=== PATIENT | female | born 1970 | race Caucasian/White ===

== ENCOUNTER 2025-01-20 18:27 | Inpatient (IN) | payer OTHER ==
[~2025-01-20] VITALS: Ht 160 cm; Wt 88.2 kg
[2025-01-20] MEDS ORDERED: METF-1211 PO (18:39)
[2025-01-20] MEDS ORDERED: LOSA-381 PO (18:39)
[2025-01-20] MEDS ORDERED: LOVA20TA73 PO (18:39)
[2025-01-20 18:53] LABS: APPEARANCE,URINE HAZY (CLEAR); GLUCOSE, URINE (UA) NEGATIVE (NEGATIVE); LEUKOCYTE ESTERASE ,URINE NEGATIVE (NEGATIVE); NITRATE,URINE NEGATIVE (NEGATIVE); OCCULT BLOOD,URINE NEGATIVE (NEGATIVE); SPECIFIC GRAVITIY, URINE 1.018 (1.003-1.030)
[2025-01-20 19:04] LABS: PLATELET COUNT (AUTO) 233 K/uL (150-450); RED BLOOD CELL COUNT(AUTO) 4.67 MIL/uL (4.00-5.20); RED CELL DISTRIBUTION WIDTH 13.6 % (11.5-14.5); WHITE BLOOD COUNT (AUTO) 7.3 K/uL (4.5-11.0)
[2025-01-20 19:11] LABS: CALCIUM, TOTAL 9.4 mg/dL (8.8-10.5); CREATININE 0.62 mg/dL (0.60-1.30); GLOMERULAR FILTR. RATE CALC > 60 mL/min (>60); GLUCOSE,RANDOM 155 mg/dL (70-110); SODIUM SERUM 144 mmol/L (136-145); UREA NITROGEN, BLOOD 16 mg/dL (7-18)
[2025-01-20 19:15] LABS: ASPARTATE AMINOTRANSFERASE 822.0 U/L (15-37); TOTAL PROTEIN, SERUM 8.1 g/dL (6.4-8.2)
[2025-01-20 19:20] LABS: TROPONIN I-HIGH SENSITIVITY Less Than 4 ng/L (<51)
[2025-01-20] MEDS: SODIUM CHLORIDE 0.9% 2,000 ML IV ONE (20:04)
[2025-01-20] MEDS: ONDANSETRON HCL 4 MG/2 ML VIAL IVP ONE (20:04)
[2025-01-20] MEDS ORDERED: MAGNESIUM HYDROXIDE SUSPENSION 30 ML UDCUP PO PRN (21:30)
[2025-01-20] MEDS ORDERED: MORPHINE SULFATE 4 MG/ML SYRINGE IVP PRN (21:30)
[2025-01-20] MEDS ORDERED: BISACODYL 10 MG RECTAL RECTAL SUPPOSITORY PR PRN (21:30)
[2025-01-20] MEDS ORDERED: ZOLPIDEM TARTRATE 5 MG TABLET PO PRN (21:30)
[2025-01-20 21:40] LABS: PH,URINE DRUG SCREEN 7.5 (5.0-8.0)
[2025-01-20 21:46] LABS: AMPHET/METH SCREEN,URINE NEGATIVE (NEGATIVE); BARBITURATE SCREEN, URINE NEGATIVE (NEGATIVE); CANNABINOID SCREEN,URINE NEGATIVE (NEGATIVE); COCAINE SCREEN,URINE NEGATIVE (NEGATIVE); METHADONE SCREEN, URINE NEGATIVE (NEGATIVE)
[2025-01-20 21:47] LABS: ALCOHOL, URINE DRUG SCREEN NEGATIVE (NEGATIVE)
[2025-01-20] MEDS: HEPARIN SODIUM,PORCINE 5,000 UNITS/ML VIAL SQ SCH (23:45)
[2025-01-21 00:54] VITALS: BP 147/90; PULSE 54; RESP 18; TEMP 97.5; O2SAT 99
[2025-01-21] MEDS: ONDANSETRON HCL 4 MG/2 ML VIAL IVP PRN (01:26)
[2025-01-21 06:14] LABS: PLATELET COUNT (AUTO) 196 K/uL (150-450); RED BLOOD CELL COUNT(AUTO) 4.48 MIL/uL (4.00-5.20); RED CELL DISTRIBUTION WIDTH 13.7 % (11.5-14.5); WHITE BLOOD COUNT (AUTO) 7.0 K/uL (4.5-11.0)
[2025-01-21 07:05] LABS: ASPARTATE AMINOTRANSFERASE 419 U/L (15-37); CALCIUM, TOTAL 8.7 mg/dL (8.8-10.5); CREATININE 0.52 mg/dL (0.60-1.30); GLOMERULAR FILTR. RATE CALC > 60 mL/min (>60); GLUCOSE,RANDOM 123 mg/dL (70-110); SODIUM SERUM 137 mmol/L (136-145); TOTAL PROTEIN, SERUM 7.7 g/dL (6.4-8.2); UREA NITROGEN, BLOOD 9 mg/dL (7-18)
[2025-01-21] MEDS: PANTOPRAZOLE SODIUM 40 MG DR TABLET PO SCH (08:34)
[2025-01-21] MEDS: LOSARTAN POTASSIUM 25 MG TABLET PO SCH (08:34)
[2025-01-21] MEDS: DOCUSATE SODIUM 100 MG CAPSULE PO SCH (08:34)
[2025-01-21 08:53] VITALS: BP 136/81; PULSE 60; RESP 17; TEMP 97.9; O2SAT 100
[2025-01-21 09:30] LABS: GLUCOMETER DEV NAME(LOC) 6N.1C; GLUCOSE,POINT OF CARE 127 MG/DL (70-110)
[2025-01-21] MEDS ORDERED: LORazepam 2 MG/ML VIAL IM ONE (13:15)
[2025-01-21 20:28] VITALS: BP 112/71; PULSE 60; RESP 18; TEMP 98.1; O2SAT 96
[2025-01-22 04:07] LABS: HEPATITIS B CORE IGM Negative (Negative); HEPATITIS C AB (EIA) Non Reactive (Non Reactive)
[2025-01-22 07:00] LABS: ASPARTATE AMINOTRANSFERASE 126 U/L (15-37); CALCIUM, TOTAL 8.9 mg/dL (8.8-10.5); CREATININE 0.76 mg/dL (0.60-1.30); GLOMERULAR FILTR. RATE CALC > 60 mL/min (>60); GLUCOSE,RANDOM 105 mg/dL (70-110); SODIUM SERUM 139 mmol/L (136-145); TOTAL PROTEIN, SERUM 7.2 g/dL (6.4-8.2); UREA NITROGEN, BLOOD 15 mg/dL (7-18)
[2025-01-22 08:14] VITALS: BP 132/86; PULSE 60; RESP 18; TEMP 97.5; O2SAT 97
== END 2025-01-22 14:45 | disposition home or self-care (01) ==
LOC: EMS 18:29 → EDH 21:17 → 6S 01-21 00:36
PROVIDERS: ADMIT Internal Medicine; ATTEND Internal Medicine
DX: K80.20 Calculus of gallbladder without cholecystitis without obstruction (principal); E11.9 Type 2 diabetes mellitus without complications; R74.01 Elevation of levels of liver transaminase levels; I10 Essential (primary) hypertension; E78.5 Hyperlipidemia, unspecified; E78.00 Pure hypercholesterolemia, unspecified; Z79.899 Other long term (current) drug therapy
CPT/HCPCS: 76705; 80048; 80053; 80074; 80076; 80307; 81003; 82962; 83690; 84484; 85025; 93005; 99285; G0378; G0481; J1171; J1644; J2405; J3230